=== PATIENT | male | born 1995 | race Caucasian/White ===

== ENCOUNTER 2017-09-07 04:14 | Emergency (ER) | payer BC, OTHER ==
[~2017-09-07] VITALS: Ht 185.4 cm; Wt 72.6 kg
[2017-09-07] MEDS ORDERED: ONDANSETRON HCL INJ 2 MG/ML VIAL IV STA (04:24)
[2017-09-07] MEDS ORDERED: PANTOPRAZOLE 40 MG 10ML VIAL IV STA (04:24)
[2017-09-07] MEDS ORDERED: DICYCLOMINE HCL 20 MG/2 ML VIAL IM ONE (04:30)
[2017-09-07] MEDS ORDERED: SODIUM CHLORIDE 0.9% 1000ML 1,000 ML IV ONE (04:30)
[2017-09-07 04:54] LABS: BASOPHILS % 0.4 % (0.0-1.0); EOSINOPHILS # (AUTO) 0.1 (0.0-0.4); EOSINOPHILS % 1.5 % (0.0-6.0); HEMATOCRIT 41.7 % (38.2-49.6); LYMPHOCYTES # (AUTO) 2.8 (1.0-3.2); LYMPHOCYTES % 37.8 % (18.0-39.1); MEAN CORPUSCULAR HEMOGLOBIN 31.4 pg (28-32); MEAN CORPUSCULAR VOLUME 87.2 fL (81-99); MONOCYTES # (AUTO) 0.4 (0.2-0.8); MONOCYTES % 5.7 % (4.4-11.3); NEUTROPHILS % 53.9 % (38.7-80.0); PLATELET COUNT 181 x10e3/uL (140-360); RED BLOOD COUNT 4.78 x10e6/uL (4.3-5.7); RED CELL DISTRIBUTION WIDTH 11.7 % (11.7-14.4)
[2017-09-07 05:11] LABS: ALANINE AMINOTRANSFERASE 12 IU/L (0-55); ALBUMIN 4.7 g/dL (3.5-5.0); ALBUMIN/GLOBULIN RATIO 1.6 (0.8-2.0); ALKALINE PHOSPHATASE 32 IU/L (40-150); AMYLASE 52 U/L (25-125); ANION GAP 13.5 mmol/L (8-16); BLOOD UREA NITROGEN 18 mg/dL (7-26); BUN/CREATININE RATIO 20 (6-25); CALCIUM 9.6 mg/dL (8.4-10.2); CARBON DIOXIDE 25 mmol/L (22-29); CHLORIDE 105 mmol/L (98-107); CREATININE, SERUM 0.89 mg/dL (0.72-1.25); EST GLOMERULAR FILTRATION RATE > 60 ML/MIN (60-); GLUCOSE 107 mg/dL (74-118); LIPASE 30 U/L (8-78); POTASSIUM 3.5 mmol/L (3.5-5.1); SODIUM 140 mmol/L (136-145)
[2017-09-07] MEDS ORDERED: PROMETHAZINE 12.5MG/ NACL 0.9% 12.5 MG/50 ML BAG IV ONE (05:15)
--- NOTE | 2017-09-07 05:20 | Diagnostic Imaging Report ---
EXAM: ABDOMEN ACUTE SERIES W/PA CXR DATE: 09/07/2017 4:24 AM Time stamp on exam: 4:43 AM INDICATION: Abdominal pain COMPARISON: None FINDINGS: LINES/TUBES: None BOWEL PATTERN: No evidence for obstruction. SOFT TISSUES: No abnormal calcifications. No mass effect. CHEST: The lungs are clear. The heart is normal in size. BONES: No acute findings. Thoracolumbar fusion with transpedicular screws and long interlocking rods IMPRESSION: No acute intrathoracic abnormality. Nonobstructive bowel gas pattern. Signed by: Dr. Bill Ochoa M.D. on 09/07/2017 5:17 AM
[2017-09-07 05:25] VITALS: BP 138/72
== END 2017-09-07 06:08 | disposition home or self-care (01) ==
LOC: ER 04:14
DX: R10.84 Generalized abdominal pain (principal); R11.2 Nausea with vomiting, unspecified; R19.7 Diarrhea, unspecified; K52.9 Noninfective gastroenteritis and colitis, unspecified
CPT/HCPCS: 36415; 74022; 80053; 82150; 83690; 85025; 99284; J0500; J2405; J2550; J7030